=== PATIENT | female | born 1930 | race Caucasian/White ===

== ENCOUNTER 2016-06-13 07:18 | Observation (INO) | payer OTHER ==
[~2016-06-13] VITALS: Ht 152.4 cm; Wt 62.0 kg
[~2016-06-13 07:18] MED LIST: SYNTHROID PO; [UNRECOGNIZED DRUG - OTHER]
[2016-06-13 07:22] VITALS: Ht 152.4 cm; Wt 62.0 kg
[2016-06-13 07:54] LABS: ADD SCAN DIFF NO
[2016-06-13 08:05] LABS: BASOPHILS % 0.6 % (0.0-2.0); EOSINOPHILS # 0.1 10^3/ul (0.0-0.5); EOSINOPHILS % 2.2 % (0.0-7.0); HEMATOCRIT 38.3 % (37.0-47.0); HEMOGLOBIN 12.3 g/dl (12.0-16.0); LYMPHOCYTES # 1.2 10^3/ul (0.8-2.9); LYMPHOCYTES % 23.8 % (15.0-51.0); MEAN CORPUSCULAR HEMOGLOBIN 31.9 pg (29.0-33.0); MEAN CORPUSCULAR HGB CONC 32.1 g/dl (32.0-37.0); MEAN CORPUSCULAR VOLUME 99.2 fl (82.0-101.0); MEAN PLATELET VOLUME 10.6 fl (7.4-10.4); MONOCYTE # 0.4 10^3/ul (0.3-0.9); MONOCYTES % 7.3 % (0.0-11.0); NEUTROPHIL # 3.2 10^3/ul (1.6-7.5); NEUTROPHILS % 65.7 % (39.0-77.0); PLATELET COUNT 233 10^3/UL (140-415); RED BLOOD COUNT 3.86 10^6/ul (4.20-5.40); RED CELL DISTRIBUTION WIDTH 14.1 % (11.5-14.5); WHITE BLOOD COUNT 4.9 10^3/ul (4.8-10.8)
[2016-06-13 08:19] LABS: ALBUMIN 4.4 g/dl (3.3-4.9); CHLORIDE 105 mmol/L (97-110); POTASSIUM 3.9 mmol/L (3.5-5.1); SODIUM 139 mmol/L (135-144)
[2016-06-13 08:21] LABS: CREATININE 0.78 mg/dl (0.44-1.00)
[2016-06-13 08:22] LABS: ALANINE AMINOTRANSFERASE 22 IU/L (13-69); ALBUMIN/GLOBULIN RATIO 1.41; ALKALINE PHOSPHATASE 86 IU/L (42-121); ANION GAP 11 (8-16); ASPARTATE AMINO TRANSFERASE 23 IU/L (15-46); BILIRUBIN,INDIRECT 0.9 mg/dl (0-1.1); BILIRUBIN,TOTAL 0.9 mg/dl (0.2-1.3); BLOOD UREA NITROGEN 20 mg/dl (7-20); CALCIUM 9.1 mg/dl (8.4-10.2); CARBON DIOXIDE 27 mmol/L (21-31); GLUCOSE 102 mg/dl (70-220); TOTAL PROTEIN 7.5 g/dl (6.1-8.1)
[2016-06-13 08:26] LABS: ADD UMIC YES; URINE BILIRUBIN (Dip) NEGATIVE (NEGATIVE); URINE BLOOD (Dip) NEGATIVE (NEGATIVE); URINE COLOR YELLOW (YELLOW); URINE GLUCOSE (Dip) NEGATIVE (NEGATIVE); URINE KETONES (Dip) NEGATIVE (NEGATIVE); URINE LEUKOCYTE ESTERASE (Dip) NEGATIVE (NEGATIVE); URINE NITRITE (Dip) NEGATIVE (NEGATIVE); URINE TOTAL PROTEIN (Dip) TRACE (NEGATIVE); URINE UROBILINOGEN (Dip) 0.2 E.U./dL (0.1-1.0)
[2016-06-13 08:36] LABS: TROPONIN-I < 0.012 ng/ml (0.00-0.12)
[2016-06-13 08:49] LABS: URINE RBCS NONE SEEN /HPF (0)
[2016-06-13 08:50] LABS: BACTERIA,URINE FEW; SQUAMOUS EPITHELIAL CELL,UR FEW
--- NOTE | 2016-06-13 08:50 | RADRPT ---
AMENDMENT: 06/13/2016 2:49:24 PM Mic Mejía MD On further review, the pancreatic duct in the head of the pancreas is dilated to approximately 2.8 m m. The duct does not appear dilated in the tail of the pancreas. PROCEDURE: CT Abdomen and Pelvis without contrast CLINICAL INDICATION: Abdominal pain and complain of pain in the bladder TECHNIQUE: Transaxial images were obtained through the abdomen and pelvis on a multi-slice scanner without the intravenous contrast administration. No oral contrast had previously been given. Sagit arabella and coronal re-formations were subsequently reconstructed. One or more of the following dose reduction techniques were used: - Automated exposure control. - Adjustment of the mA and/or kV according to patient size. - Use of iterative reconstruction technique. Radiation dose: CTDIvol = 14.97 mGy; DLP = 769.17 mGy-cm. COMPARISON: No prior studies are available for comparison. FINDINGS: Lung bases: There is mild cylindrical bronchiectasis seen in the lower lobes with slight interstitia l prominence. Liver: The liver is normal in size. A 1 cm cyst is seen at the dome of the right lobe of the liver. Gallbladder: Surgical ksenia are seen in the gallbladder fossa. Bile ducts: The intra and extrahepatic bile ducts are normal in caliber. Pancreas: Appears normal with no mass or inflammation evident. Spleen: Normal in size with no focal lesion. Calcifications are seen at the arm spleen. Adrenals: Normal with no mass identified. Kidneys, ureters and bladder: The kidneys are normal in size and there is no mass, pathological calc ification, or hydronephrosis evident. There is no perinephric stranding. The ureters are normal in c aliber and no ureteroliths are identified. The bladder is poorly distended. Reproductive organs: The uterus is absent and no adnexal mass is identified. Stomach and bowel: The stomach appears unremarkable. Abundant stool is seen within the somewhat red undant colon. There is no evidence of bowel obstruction or inflammation. Appendix: The vermiform appendix is not distinctly identified. Peritoneum: No free intraperitoneal fluid or air is identified. There is a small fat containing umbi lical hernia. Aorta: There is atherosclerotic vascular calcification but no abdominal aortic aneurysm is evident. IVC: Unremarkable. Lymph nodes: No pathologically enlarged nodes are identified. Osseous structures: There is a moderate dextroscoliotic curve to the lumbar spine and straightening of the normal lordotic curve with grade 1 anterolisthesis of L4 on L5 and with diffuse degenerative endplate and facet changes. IMPRESSION: 1. There is no evidence of urinary outflow obstruction or ureterolithiasis. The bladder is poorly distended. 2. No evidence of bowel obstruction or inflammation. Substantial stool seen within the colon and t he vermiform appendix is not discretely identified. 3. A 1 cm cyst is seen at the dome of the right lobe of the liver. 4. 2 punctate calcifications are seen within the left perineum adjacent to the spleen. 5. Status post cholecystectomy without significant bile duct dilatation evident. 6. Atherosclerotic aorta 7. Dextroscoliotic curve to the thoracic spine with grade 1 anterolisthesis of L4 on L5 with severe diffuse degenerative spine changes. 8. Cylindrical bronchiectasis seen at the lung bases with mild interstitial prominence. Physician Mary Date Time Electronically viewed and signed by Physician Mary on 06/13/2016 14:51 /
[2016-06-13] MEDS ORDERED: HYDR-906 PO (09:30)
[2016-06-13] MEDS ORDERED: DOCU-144 PO (09:30)
--- NOTE | 2016-06-13 09:32 | ERD ---
ER Documentation Chief Complaint Date/Time DATE: 06/13/16 TIME: 09:32 Chief Complaint rt upper abd pain HPI Patient is an 85-year-old female with arthritis who presents with abdominal pain. She has right upper quadrant abdominal pain. She says that she has had a CT scan and an MRI recently which were "all okay" although there was something wrong with her "ampulla". She said this pain started once a months ago. She said that usually the pain is there but it is not constant as it goes away but then comes back quickly. She has had no rashes. She feels it as a "pressure". She has had no fevers, no vomiting, no diarrhea. She says that she has had no treatment as of yet and that she does not like taking medicines. Her primary doctor is Dr. Parry. ROS All systems reviewed and are negative except as per history of present illness. Medications Home Meds Active Scripts Docusate Sodium* (Colace*) 100 Mg Capsule, 100 MG PO TID, #30 CAP Prov:EDEL SEGURA MD 06/13/16 Hydrocodone/Acetaminophen ([place] 5-325 Tablet) 1 Each Tablet, 1 TAB PO Q6H Y for PAIN, #7 TAB Prov:EDEL SEGURA MD 06/13/16 Discontinued Reported Medications [Vitmains] No Conflict Check 07/02/13 [Synthroid] No Conflict Check, PO 07/02/13 Allergies Allergies: Coded Allergies: No Known Allergy (Unverified , 06/13/16) PMhx/Soc History of Surgery: Yes (HYSTERECTOMY, CHOLECYSTECTOMY, TONSILLECTOMY) Anesthesia Reaction: No Hx Neurological Disorder: No Hx Respiratory Disorders: Yes (BRONCHIECTASIS) Hx Cardiac Disorders: No Hx Psychiatric Problems: No Hx Miscellaneous Medical Probl: No Hx Alcohol Use: No Hx Substance Use: No Hx Tobacco Use: No FmHx Family History: diabetes Physical Exam Vitals Vital Signs Date Time Temp Pulse Resp B/P Pulse Ox O2 Delivery O2 Flow Rate FiO2 06/13/16 10:00 98.3 68 20 110/70 98 Room Air 06/13/16 07:22 97.8 87 18 126/60 98 Physical Exam Const: Mild distress secondary to pain Head: Atraumatic Eyes: Normal Conjunctiva ENT: Normal External Ears, Nose and Mouth. Neck: Full range of motion..~ No meningismus. Resp: Clear to auscultation bilaterally Cardio: Regular rate and rhythm, no murmurs Abd: Soft, right upper quadrant pain without rebound or guarding Skin: No petechiae or rashes Back: No midline or flank tenderness Ext: No cyanosis, or edema Neur: Awake and alert Psych: Normal Mood and Affect Result Diagram: 06/13/16 0745 06/13/16 0745 Results 24 hrs Laboratory Tests Test 06/13/16 07:45 06/13/16 08:13 White Blood Count 4.910^3/ul Red Blood Count 3.8610^6/ul Hemoglobin 12.3g/dl Hematocrit 38.3% Mean Corpuscular Volume 99.2fl Mean Corpuscular Hemoglobin 31.9pg Mean Corpuscular Hemoglobin Concent 32.1g/dl Red Cell Distribution Width 14.1% Platelet Count 55616^3/UL Mean Platelet Volume 10.6fl Neutrophils % 65.7% Lymphocytes % 23.8% Monocytes % 7.3% Eosinophils % 2.2% Basophils % 0.6% Nucleated Red Blood Cells % 0.0/100WBC Neutrophils # 3.210^3/ul Lymphocytes # 1.210^3/ul Monocytes # 0.410^3/ul Eosinophils # 0.110^3/ul Basophils # 0.010^3/ul Nucleated Red Blood Cells # 0.010^3/ul Sodium Level 139mmol/L Potassium Level 3.9mmol/L Chloride Level 105mmol/L Carbon Dioxide Level 27mmol/L Anion Gap 11 Blood Urea Nitrogen 20mg/dl Creatinine 0.78mg/dl Glucose Level 102mg/dl Calcium Level 9.1mg/dl Total Bilirubin 0.9mg/dl Direct Bilirubin 0.00mg/dl Indirect Bilirubin 0.9mg/dl Aspartate Amino Transf (AST/SGOT) 23IU/L Alanine Aminotransferase (ALT/SGPT) 22IU/L Alkaline Phosphatase 86IU/L Troponin I < 0.012ng/ml Total Protein 7.5g/dl Albumin 4.4g/dl Globulin 3.10g/dl Albumin/Globulin Ratio 1.41 Lipase 98U/L CA 19-9 Antigen 52.2U/ml Urine Color YELLOW Urine Clarity CLEAR Urine pH 5.5 Urine Specific Meally >=1.030 Urine Ketones NEGATIVE Urine Nitrite NEGATIVE Urine Bilirubin NEGATIVE Urine Urobilinogen 0.2 E.U./dL Urine Leukocyte Esterase NEGATIVE Urine Microscopic RBC NONE SEEN/HPF Urine Microscopic WBC 2-5/HPF Urine Squamous Epithelial Cells FEW Urine Bacteria FEW Urine Hemoglobin NEGATIVE Urine Glucose NEGATIVE% Urine Total Protein TRACE Current Medications Medications (Trade) Dose Ordered Sig/Clarence Route PRN Reason Start Time Stop Time Status Last Admin Dose Admin Ondansetron HCl (Zofran Inj) 4 mg BRIDGE ORDER PRN IV NAUSEA AND/OR VOMITING 06/13/16 10:00 06/14/16 09:59 Acetaminophen (Tylenol Tab) 650 mg ER BRIDGE PRN PO MILD PAIN/FEVER 06/13/16 10:00 06/14/16 09:59 Procedures/MDM EKG read by me: Rate/Rhythm: Right bundle branch block a rate of 75 Intervals: Normal Impression: Right bundle branch block without evidence of ischemia PROCEDURE: CT Abdomen and Pelvis without contrast CLINICAL INDICATION: Abdominal pain and complain of pain in the bladder TECHNIQUE: Transaxial images were obtained through the abdomen and pelvis on a multi-slice scanner without the intravenous contrast administration. No oral contrast had previously been given. Sagittal and coronal re-formations were subsequently reconstructed. One or more of the following dose reduction techniques were used: - Automated exposure control. - Adjustment of the mA and/or kV according to patient size. - Use of iterative reconstruction technique. Radiation dose: CTDIvol = 14.97 mGy; DLP = 769.17 mGy-cm. COMPARISON: No prior studies are available for comparison. FINDINGS: Lung bases: There is mild cylindrical bronchiectasis seen in the lower lobes with slight interstitial prominence. Liver: The liver is normal in size. A 1 cm cyst is seen at the dome of the right lobe of the liver. Gallbladder: Surgical ksenia are seen in the gallbladder fossa. Bile ducts: The intra and extrahepatic bile ducts are normal in caliber. Pancreas: Appears normal with no mass or inflammation evident. Spleen: Normal in size with no focal lesion. Calcifications are seen at the arm spleen. Adrenals: Normal with no mass identified. Kidneys, ureters and bladder: The kidneys are normal in size and there is no mass, pathological calcification, or hydronephrosis evident. There is no perinephric stranding. The ureters are normal in caliber and no ureteroliths are identified. The bladder is poorly distended. Reproductive organs: The uterus is absent and no adnexal mass is identified. Stomach and bowel: The stomach appears unremarkable. Abundant stool is seen within the somewhat redundant colon. There is no evidence of bowel obstruction or inflammation. Appendix: The vermiform appendix is not distinctly identified. Peritoneum: No free intraperitoneal fluid or air is identified. There is a small fat containing umbilical hernia. Aorta: There is atherosclerotic vascular calcification but no abdominal aortic aneurysm is evident. IVC: Unremarkable. Lymph nodes: No pathologically enlarged nodes are identified. Osseous structures: There is a moderate dextroscoliotic curve to the lumbar spine and straightening of the normal lordotic curve with grade 1 anterolisthesis of L4 on L5 and with diffuse degenerative endplate and facet changes. IMPRESSION: 1. There is no evidence of urinary outflow obstruction or ureterolithiasis. The bladder is poorly distended. 2. No evidence of bowel obstruction or inflammation. Substantial stool seen within the colon and the vermiform appendix is not discretely identified. 3. A 1 cm cyst is seen at the dome of the right lobe of the liver. 4. 2 punctate calcifications are seen within the left perineum adjacent to the spleen. 5. Status post cholecystectomy without significant bile duct dilatation evident. 6. Atherosclerotic aorta 7. Dextroscoliotic curve to the thoracic spine with grade 1 anterolisthesis of L4 on L5 with severe diffuse degenerative spine changes. 8. Cylindrical bronchiectasis seen at the lung bases with mild interstitial prominence. Physician Mary Date Time Electronically viewed and signed by Physician Mary on 06/13/2016 08:49 Patient is a 85-year-old female presents with abdominal pain. She has had abdominal pain for months but the family is concerned about possible cancer as she has had elevated CA 19-9 levels in the past. She had a full workup here including laboratory studies and CT scan of the abdomen and pelvis. The patient had normal laboratory studies other than an elevated CA-19-9 which is elevated at 52. I was considering discharge for the patient but Dr. Parry came to the bedside and saw the patient herself. She is the patient's primary doctor and said that the patient cannot be discharged and needs to be admitted to the hospital. She said that she is unstable for transfer as well given the intractable pain. The patient will therefore be admitted Dr. Parry asked for admission to the care of Dr. Masters and she will see the patient in consultation. I spoke with Dr. Masters for admission to a medical surgical bed. At this point I doubt appendicitis, cholecystitis, pancreatitis, or bowel obstruction. She has had hysterectomy, cholecystectomy, and appendectomy. There is a concern for possible pancreatic cancer given previous imaging studies per Dr. Parry. The patient is currently refusing pain medicines. The patient will be admitted to a medical surgical observation bed. Departure Diagnosis: Primary Impression: Abdominal pain Abdominal location: right upper quadrant Qualified Code: R10.11 - Right upper quadrant abdominal pain Condition: Fair Patient Instructions: Abdominal Pain Referrals: ELLA PARRY MD Additional Instructions: FOLLOW UP WITH YOUR PRIMARY CARE PHYSICIAN TOMORROW.Return to this facility if you are not improving as expected. EDEL SEGURA MD Jun 13, 2016 09:32
[2016-06-13] MEDS ORDERED: ONDANSETRON 4 MG INJ IV PRN (10:00)
[2016-06-13] MEDS ORDERED: ACETAMINOPHEN 325 MG TAB PO PRN (10:00)
[2016-06-13 10:32] VITALS: TEMP 98.3
[2016-06-13 12:08] VITALS: BP 110/61; PULSE 79; RESP 18
[2016-06-13 12:53] LABS: PROTIME 13.2 Sec (12.2-14.2)
[2016-06-13 12:54] LABS: PARTIAL THROMBOPLASTIN TIME 28.6 Sec (25.0-35.0); PROTIME 13.2 Sec (12.2-14.2); THROMBIN TIME 15.9 SEC (13.8-19.1)
[2016-06-13] MEDS: D5W-0.45 NACL + KCL 20 MEQ 1,000 ML IV SCH (12:59)
[2016-06-13] MEDS ORDERED: INDOMETHACIN 50 MG SUPP PR ONE (14:00)
--- NOTE | 2016-06-13 15:36 | HP ---
DATE OF ADMISSION: 06/13/2016 CHIEF COMPLAINT: Right upper abdominal pain. HISTORY OF PRESENT ILLNESS: The patient is an 85-year-old very female. The patient stated that she developed a right upper quadrant abdominal pain about a month ago. The patient is followed with Dr Steven Parry in hematology/oncology consultation and had some outpatient studies, which revealed some ampulla mass. The patient stated that her right upper quadrant pain gets significantly worse and sh e presented to the emergency room. The patient denies any fever or chills. Denies any nausea, vomi ting. Patient also stated that she has pain when her bladder gets full. She actually was evaluated by , urologist and had cystoscopy with biopsy which according to the patient, was negativ e. The patient denies any nausea, vomiting. Patient stated her abdominal pain is not related to th e food ingestion. The patient denies any chest pain, denies any shortness of breath, denies any miguel ateral extremity swelling. The patient also underwent a CT of the abdomen and pelvis which revealed 1 cm cyst in the dome of the right lobe of the liver, no evidence of obstruction or inflammation, s ustained substantial stool seen within the colon. There is no evidence of urinary outflow obstructi on or ureterolithiasis. The bladder is fully distended. Two punctate calcifications are seen within the left perineum adjacent to the spleen, status post ch olecystectomy without significant bile duct dilatation evident. Atherosclerotic aortic, cylindrical bronchiectasis seen at the lung bases with mild interstitial prominence and a dextroscoliotic cure t o the thoracic spine with grade I anterolisthesis of L4 on L5 with severe diffuse degenerative spine changes. The patient was evaluated by Dr. Parry and will be admitted for further GI workup. T he patient also CA99 was elevated to 52. PAST MEDICAL HISTORY: Positive for bronchiectasis. PAST SURGICAL HISTORY: Status post hysterectomy, status post cholecystectomy, status post tonsillec alanis, status post appendectomy. FAMILY HISTORY: Positive for diabetes. SOCIAL HISTORY: Patient lives alone. IDENTIFICATION: The patient is a . The patient denies any tobacco use, denies any alcohol use , denies any illicit drug use. ALLERGIES: NO KNOWN ALLERGIES. HOME MEDICATIONS: Includes: 1. Colace. 2. [place]. REVIEW OF SYSTEMS: A 12-point review of systems is negative unless what mentioned in the HPI. PHYSICAL ASSESSMENT GENERAL: Well-developed, well-nourished female, currently is awake, alert. VITAL SIGNS: Temperature is 98.3, pulse is 71, blood pressure is 110/63, respiratory rate 20, oxyge n saturation 98% on room air. HEENT: Head is atraumatic, normocephalic. Pupils equal, round, reactive to light and accommodation . Oral mucosa is pink and moist. NECK: Supple, no cervical lymphadenopathy, no thyromegaly. CHEST: Lungs clear bilaterally. There is no rhonchi, wheezes, rales noted. CARDIOVASCULAR: Normal S1, S2. No murmurs, gallops, clicks, rubs noted. ABDOMEN: Round, soft, nondistended. Patient has a right upper quadrant tenderness. Bowel sounds p resent. There is no guarding, no rebound tenderness. EXTREMITIES: No edema, clubbing, cyanosis. Pulses equal bilaterally 2+. SKIN: There is no rash, petechiae noted. NEUROLOGIC: Patient is awake, alert and oriented x4. No focal deficits noted. Motor strength 5/5 in all extremities. LABORATORY DATA: On admission, CBC: White blood cells 4.9, hemoglobin 12.3, hematocrit 38.3, plate lets 233. Chemistry: Sodium is 139, potassium 3.9, chloride 105, carbon dioxide 27, anion gap 11, BUN 20, creatinine 0.78, glucose 102, calcium 9.1, AST 23, ALT 22, alkaline phosphatase is 86. Trop onin less than 0.012. Urinalysis is negative for nitrite and negative for leukocyte esterase. ASSESSMENT AND PLAN: Intractable abdominal pain. We will continue Zofran p.r.n. for nausea and mor phine p.r.n. for pain. Possible pancreatic cancer. Dr. Bermudez is following the patient in gastroente rology consultation and plan for ERCP today. Continue patient n.p.o. We will administer IV fluids a nd monitor electrolytes. We will continue sequential compression device for deep venous thrombosis prophylaxis and Protonix for peptic ulcer disease prophylaxis. Further recommendations based on cli nical course. Plan of care discussed with Dr. Johnson. Dictated By: JENNIFER ARREDONDO SERVICE AND REPAIR SUPERVISOR for MARRY JOHNSON MD SR/NTS Conf#: [id number] [facility]#: [id number]
--- NOTE | 2016-06-13 16:23 | CONS ---
DATE OF ADMISSION: 06/13/2016 DATE OF CONSULTATION: TYPE OF CONSULTATION: Gastroenterology. Dear Dr. Johnson and Dr. Parry: Thank you for asking me to see Mrs. Monroe in GI consultation. HISTORY OF PRESENT ILLNESS: As you know, the patient is an 85-year-old white female, is admitted to the hospital because of abdominal pain which she has been experiencing for the past 2 months. Pain is mostly upper abdomen whenever there is pressure on it by the bra or a dress of some kind it woul d hurt. She would feel better when there is no pressure on the abdomen. No nausea, no vomiting, no GI bleeding, no fever. No significant weight loss. 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 Twent y years ago she underwent a cholecystectomy. Now, she thinks that the pain is similar to the pain t hat she had at the time of the gallbladder surgery. She has no history of diarrhea. She had an episode of pancreatitis 20 years ago. PAST SURGICAL HISTORY: Includes cholecystectomy, hysterectomy, tubal ligation. MEDICATIONS: Prior to the admission includes: 1. Colace. 2. [place]. 3. Vitamin. 4. Synthroid. REVIEW OF SYSTEM: Indicates bronchiectasis. PHYSICAL EXAMINATION: GENERAL: The patient is an 85-year-old white female who is alert. She is well built. VITAL SIGNS: Afebrile. CARDIOVASCULAR: Normal heart sounds. RESPIRATORY: Normal breath sounds. ABDOMEN: Shows soft abdomen with no palpable masses. No distention. LABORATORY WORKUP: WBC count 4900, hemoglobin 12.3, potassium 3.9, hemoglobin is 12.3. The lipase is 98%. CA 19-9 is 52.2, total bilirubin 0.9. The AST is 23, ALT is 22. The CAT scan of the abdomen done in this hospital shows no gross abnormality, but there was some cor rections need to be made, which I discussed with the radiologist. There seems to be significant robbins creatic ductal dilatation. 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 History of bronchiectasis. PLAN: At this time, recommend ERCP as requested, and probably she might need stenting. Once again, doctor, thank you for this consultation. Dictated By: ANGY DUBON/RADHA Conf#: [id number] DID#: [id number] CC: ELLA PARRY MD; MARRY JOHNSON MD;*EndCC*
[2016-06-13] MEDS ORDERED: IOHEXOL 300MG/ML 30 ML BTL ONE (17:53)
[2016-06-13] MEDS ORDERED: MIDAZOLAM 1 MG/ML 2 ML INJ ONE (19:10)
[2016-06-13] MEDS ORDERED: ROCURONIUM 50 MG INJ ONE (19:10)
[2016-06-13] MEDS ORDERED: PROPOFOL 20 ML ONE (19:10)
--- NOTE | 2016-06-13 22:26 | CONS ---
Date/Time of Note Date/Time of Note DATE: 06/13/16 TIME: 22:26 Assessment/Plan Assessment/Plan Chief Complaint/Hosp Course ASSESSMENT AND PLAN: AMPULLARY MASS Intractable abdominal pain. We will continue Zofran p.r.n. for nausea and morphine p.r.n. for pain. GI EVAL - FOR ERCP HX pancreatitis 20 years ago. HX cholecystectomy, HX hysterectomy, tubal ligation. 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 SHE ALSO HAS ELEVATED CA 19-9-at 51. The patient stated that her right upper quadrant pain gets significantly worse and she presented to the emergency room. The patient denies any fever or chills. Denies any nausea, vomiting. Patient also stated that she has pain when her bladder gets full. She actually was evaluated by urologist and had cystoscopy with biopsy which according to the patient, was negative. The patient denies any nausea, vomiting. Patient stated her abdominal pain is not related to the food ingestion. The patient denies any chest pain, denies any shortness of breath, denies any bilateral extremity swelling. The patient also underwent a CT of the abdomen and pelvis in ER without contrast which revealed 1 cm cyst in the dome of the right lobe of the liver, no evidence of obstruction or inflammation, sustained substantial stool seen within the colon. There is no evidence of urinary outflow obstruction or ureterolithiasis. The bladder is fully distended. Two punctate calcifications are seen within the left perineum adjacent to the spleen, status post cholecystectomy without significant bile duct dilatation evident. Atherosclerotic aortic, cylindrical bronchiectasis seen at the lung bases with mild interstitial prominence and a dextroscoliotic cure to the thoracic spine with grade I anterolisthesis of L4 on L5 with severe diffuse degenerative spine changes. PAST MEDICAL HISTORY: Positive for bronchiectasis. PAST SURGICAL HISTORY: Status post hysterectomy, status post cholecystectomy, status post tonsillectomy, status post appendectomy. FAMILY HISTORY: Positive for diabetes. SOCIAL HISTORY: Patient lives alone. IDENTIFICATION: The patient is a . The patient denies any tobacco use, denies any alcohol use, denies any illicit drug use. ALLERGIES: NO KNOWN ALLERGIES. HOME MEDICATIONS: Includes: 1. Colace. 2. Stamps. REVIEW OF SYSTEMS: A 12-point review of systems is negative unless what mentioned in the HPI. Social History Smoking Status: Never smoker Exam/Review of Systems Vital Signs Vitals Vital Signs Date Time Temp Pulse Resp B/P Pulse Ox O2 Delivery O2 Flow Rate FiO2 06/13/16 12:08 97.6 79 18 110/61 96 Room Air Exam PHYSICAL ASSESSMENT GENERAL: Well-developed, well-nourished female, currently is awake, alert, in severe pain HEENT: Head is atraumatic, normocephalic. Pupils equal, round, reactive to light and accommodation. Oral mucosa is pink and moist. NECK: Supple, no cervical lymphadenopathy, no thyromegaly. CHEST: Lungs clear bilaterally. There is no rhonchi, wheezes, rales noted. CARDIOVASCULAR: Normal S1, S2. No murmurs, gallops, clicks, rubs noted. ABDOMEN: Round, soft, nondistended. Patient has a right upper quadrant tenderness. Bowel sounds present. There is no guarding, no rebound tenderness. EXTREMITIES: No edema, clubbing, cyanosis. Pulses equal bilaterally 2+. SKIN: There is no rash, petechiae noted. NEUROLOGIC: Patient is awake, alert and oriented x4. No focal deficits noted. Motor strength 5/5 in all extremities. Results Result Diagram: 06/13/16 1215 06/13/16 0745 Results 24 hrs Laboratory Tests Test 06/13/16 07:45 06/13/16 08:13 06/13/16 12:15 White Blood Count 4.9 Red Blood Count 3.86 L Hemoglobin 12.3 Hematocrit 38.3 Mean Corpuscular Volume 99.2 Mean Corpuscular Hemoglobin 31.9 Mean Corpuscular Hemoglobin Concent 32.1 Red Cell Distribution Width 14.1 Platelet Count 233 244 Mean Platelet Volume 10.6 H Neutrophils % 65.7 Lymphocytes % 23.8 Monocytes % 7.3 Eosinophils % 2.2 Basophils % 0.6 Nucleated Red Blood Cells % 0.0 Neutrophils # 3.2 Lymphocytes # 1.2 Monocytes # 0.4 Eosinophils # 0.1 Basophils # 0.0 Nucleated Red Blood Cells # 0.0 Sodium Level 139 Potassium Level 3.9 Chloride Level 105 Carbon Dioxide Level 27 Anion Gap 11 Blood Urea Nitrogen 20 Creatinine 0.78 Glucose Level 102 Calcium Level 9.1 Total Bilirubin 0.9 Direct Bilirubin 0.00 Indirect Bilirubin 0.9 Aspartate Amino Transf (AST/SGOT) 23 Alanine Aminotransferase (ALT/SGPT) 22 Alkaline Phosphatase 86 Troponin I < 0.012 Total Protein 7.5 Albumin 4.4 Globulin 3.10 Albumin/Globulin Ratio 1.41 Lipase 98 CA 19-9 Antigen 52.2 H Urine Color YELLOW Urine Clarity CLEAR Urine pH 5.5 Urine Specific [place] >=1.030 H Urine Ketones NEGATIVE Urine Nitrite NEGATIVE Urine Bilirubin NEGATIVE Urine Urobilinogen 0.2 E.U./dL Urine Leukocyte Esterase NEGATIVE Urine Microscopic RBC NONE SEEN Urine Microscopic WBC 2-5 Urine Squamous Epithelial Cells FEW Urine Bacteria FEW Urine Hemoglobin NEGATIVE Urine Glucose NEGATIVE Urine Total Protein TRACE Prothrombin Time 13.2 Prothrombin Time Ratio 1.0 INR International Normalized Ratio 1.00 Activated Partial Thromboplast Time 28.6 Thrombin Time 15.9 Medications Medications Current Medications Potassium Chloride/Dextrose/ Sod Cl (D5-1/2ns + KCl 20 Meq) 1,000 ml @ 70 mls/ hr [id number] IV Last administered on 06/13/16t 12:59; Admin Dose 70 MLS/HR; Start 06/13/16 at 12:00 Pantoprazole (Protonix Iv) 40 mg DAILY@06 IV ; Start 06/14/16 at 06:00 ELLA DARLING MD Jun 13, 2016 22:26
[2016-06-14] VITALS (16 sets, daily range): BP systolic 100–120; BP diastolic 42–64; PULSE 80–86; RESP 14–32
[2016-06-14] MEDS: PANTOPRAZOLE 40 MG INJ IV SCH (05:45)
[2016-06-14] MEDS: D5W-0.45 NACL + KCL 20 MEQ 1,000 ML IV SCH ×2 (05:52→16:16)
[2016-06-14 07:20] LABS: ADD SCAN DIFF NO
[2016-06-14 07:24] LABS: BASOPHILS % 0.5 % (0.0-2.0); EOSINOPHILS # 0.1 10^3/ul (0.0-0.5); EOSINOPHILS % 3.2 % (0.0-7.0); HEMATOCRIT 38.2 % (37.0-47.0); HEMOGLOBIN 12.1 g/dl (12.0-16.0); LYMPHOCYTES # 1.3 10^3/ul (0.8-2.9); LYMPHOCYTES % 30.3 % (15.0-51.0); MEAN CORPUSCULAR HEMOGLOBIN 31.7 pg (29.0-33.0); MEAN CORPUSCULAR HGB CONC 31.7 g/dl (32.0-37.0); MEAN PLATELET VOLUME 10.9 fl (7.4-10.4); MONOCYTE # 0.3 10^3/ul (0.3-0.9); MONOCYTES % 7.3 % (0.0-11.0); NEUTROPHIL # 2.6 10^3/ul (1.6-7.5); NEUTROPHILS % 58.2 % (39.0-77.0); PLATELET COUNT 239 10^3/UL (140-415); RED BLOOD COUNT 3.82 10^6/ul (4.20-5.40); RED CELL DISTRIBUTION WIDTH 14.3 % (11.5-14.5); WHITE BLOOD COUNT 4.4 10^3/ul (4.8-10.8)
[2016-06-14 07:40] LABS: POTASSIUM 4.1 mmol/L (3.5-5.1)
[2016-06-14 07:42] LABS: CREATININE 0.74 mg/dl (0.44-1.00)
--- NOTE | 2016-06-14 10:32 | CONS ---
Date/Time of Note Date/Time of Note DATE: 06/14/16 TIME: 10:31 Assessment/Plan Assessment/Plan Chief Complaint/Hosp Course ASSESSMENT AND PLAN: AMPULLARY MASS Intractable abdominal pain. We will continue Zofran p.r.n. for nausea and morphine p.r.n. for pain. GI - ERCP HX pancreatitis 20 years ago. HX cholecystectomy, HX hysterectomy, tubal ligation. Problems: Consultation Date/Type/Reason Admit Date/Time Jun 13, 2016 at 10:17 Initial Consult Date 06/13/16 Type of Consultation: [facility] Referring Provider: MARRY JOHNSON MD 24 HR Interval Summary Free Text/Dictation all noted d/w dr bautista Exam/Review of Systems Vital Signs Vitals Vital Signs Date Time Temp Pulse Resp B/P Pulse Ox O2 Delivery O2 Flow Rate FiO2 06/14/16 08:00 98.4 57 16 102/49 94 06/13/16 12:08 Room Air Intake and Output 06/13/16 06/13/16 06/14/16 15:00 23:00 07:00 Intake Total 420 ml 600 ml Balance 420 ml 600 ml Exam GENERAL: Well-developed, well-nourished female, currently is awake, alert. HEENT: Head is atraumatic, normocephalic. Pupils equal, round, reactive to light and accommodation. Oral mucosa is pink and moist. NECK: Supple, no cervical lymphadenopathy, no thyromegaly. CHEST: Lungs clear bilaterally. There is no rhonchi, wheezes, rales noted. CARDIOVASCULAR: Normal S1, S2. No murmurs, gallops, clicks, rubs noted. ABDOMEN: Round, soft, nondistended. Patient has a right upper quadrant tenderness. Bowel sounds present. There is no guarding, no rebound tenderness. EXTREMITIES: No edema, clubbing, cyanosis. Pulses equal bilaterally 2+. SKIN: There is no rash, petechiae noted. NEUROLOGIC: Patient is awake, alert and oriented x4. No focal deficits noted. Motor strength 5/5 in all extremities. Results Result Diagram: 06/14/16 0552 06/14/16 0552 Results 24 hrs Laboratory Tests Test 06/13/16 12:15 06/14/16 05:52 Platelet Count 244 239 Prothrombin Time 13.2 Prothrombin Time Ratio 1.0 INR International Normalized Ratio 1.00 Activated Partial Thromboplast Time 28.6 Thrombin Time 15.9 White Blood Count 4.4 L Red Blood Count 3.82 L Hemoglobin 12.1 Hematocrit 38.2 Mean Corpuscular Volume 100.0 Mean Corpuscular Hemoglobin 31.7 Mean Corpuscular Hemoglobin Concent 31.7 L Red Cell Distribution Width 14.3 Mean Platelet Volume 10.9 H Neutrophils % 58.2 Lymphocytes % 30.3 Monocytes % 7.3 Eosinophils % 3.2 Basophils % 0.5 Nucleated Red Blood Cells % 0.0 Neutrophils # 2.6 Lymphocytes # 1.3 Monocytes # 0.3 Eosinophils # 0.1 Basophils # 0.0 Nucleated Red Blood Cells # 0.0 Sodium Level 142 Potassium Level 4.1 Chloride Level 105 Carbon Dioxide Level 26 Anion Gap 15 Blood Urea Nitrogen 17 Creatinine 0.74 Glucose Level 99 Calcium Level 9.0 Medications Medications Current Medications Potassium Chloride/Dextrose/ Sod Cl (D5-1/2ns + KCl 20 Meq) 1,000 ml @ 70 mls/ hr [id number] IV Last administered on 06/14/16 05:52; Admin Dose 70 MLS/HR; Start 06/13/16 at 12:00 Pantoprazole (Protonix Iv) 40 mg DAILY@06 IV Last administered on 06/14/16 05: 45; Admin Dose 40 MG; Start 06/14/16 at 06:00 ELLA DARLING MD Jun 14, 2016 10:32
[2016-06-14] MEDS ORDERED: IOHEXOL 300MG/ML 30 ML BTL ONE (11:31)
[2016-06-14] MEDS ORDERED: FENTAnyl 50 MCG/ML VIAL ONE (11:45)
[2016-06-14] MEDS ORDERED: NEOSTIGMINE 3 MG/3 ML SYRINGE ONE (11:45)
[2016-06-14] MEDS ORDERED: GLYCOPYRROLATE 0.4 MG INJ ONE (11:45)
[2016-06-14] MEDS ORDERED: MIDAZOLAM 1 MG/ML 2 ML INJ ONE (11:45)
[2016-06-14] MEDS ORDERED: LIDOCAINE 2% (SDV) 5 ML INJ ONE (11:45)
[2016-06-14] MEDS ORDERED: ROCURONIUM 50 MG INJ ONE (11:45)
[2016-06-14] MEDS ORDERED: PROPOFOL 20 ML ONE (11:45)
[2016-06-14] MEDS ORDERED: ONDANSETRON 4 MG INJ ONE (11:47)
[2016-06-14] MEDS ORDERED: PHENYLephrine (100 MCG/ML) 5ML SYG ONE (12:24)
[2016-06-14] MEDS ORDERED: hydrALAzine 20 MG INJ ONE (12:34)
[2016-06-14] MEDS ORDERED: HYDROmorphONE (0.2 MG/ML) 10ML SYG IV PRN (13:00)
[2016-06-14] MEDS ORDERED: LABETALOL HCL 20MG INJ IV PRN (13:00)
[2016-06-14] MEDS ORDERED: MEPERIDINE 25 MG INJ IV PRN (13:00)
--- NOTE | 2016-06-14 14:17 | GILP ---
DATE OF PROCEDURE: NAME OF PROCEDURE: Endoscopic retrograde cholangiopancreatography, sphincterotomy, stent placement into the pancreatic duct, and stent placement into the bile duct. PREOPERATIVE DIAGNOSIS: Patient presenting with history of abdominal pain. CAT scan of the abdomen showed evidence of a possible mass in the ampulla, possible mass adjacent to the ampulla, a dilated pancreatic duct, rule out pancreatic cancer. POSTOPERATIVE DIAGNOSES: Stricture noted about 1 cm above the ampulla, in the pancreatic duct there is a high grade stricture. After the brushing, a 7 x 7 pancreatic duct stent was placed. The CBD showed dilatation all the way from the ampulla to the hilum of the hepatic duct, and there was a pos sibility of a stricture near the ampulla. Sphincterotomy was performed. CBD stent was placed. Biopsy of the ampulla and adjacent polyp was done. DESCRIPTION OF PROCEDURE: After the informed written consent was obtained, the patient was intubate d by anesthesiologist, Dr. Butler. When the patient became more somnolent, was sleepy in the pron e position, Olympus video side-viewing duodenoscope was inserted into the oropharynx, then into the esophagus, subsequently into the stomach and then into the duodenum. The ampulla appeared to be nor mal in appearance. Carcinoma cannot be excluded. About 2 cm away from the ampulla proximally there is evidence of about a 1 cm sessile polyp was noted with a wide base. Biopsy was done. Through the ampulla, the Dreamtome was inserted and common pancreatic duct was initially cannulated. There is a pancreatic duct from the ampulla for about 1 to 1.5 cm length, appeared to be dilated. Above this area, there is a high grade stricture about 2 cm long was noted and proximal to the stri cture, pancreatic duct also significantly dilated. At this time, through the Dreamtome guidewire wa s inserted through the pancreatic duct stricture into the proximal pancreatic duct and over the guid ewire by using the Dreamtome, sphincterotomy of the pancreatic duct sphincter was performed, and fol lowing the sphincterotomy, a brush was inserted and pancreatic duct stricture was brushed, and the b tejeda was sent for cytology. Subsequently, 7 cm x 7-Georgian long straight pancreatic duct stent was d eployed across the ampulla into the duodenum and into the pancreatic duct. At this time, by using t [email or web address], common bile duct was cannulated. Common bile duct showed significant dilatation at le ast more than 1 cm in diameter. A small sphincterotomy was performed by using the cutting wire of t he PIERIS Proteolabtome. At this time, over the guidewire, a 10 x 7 [place] type of biliary stent was placed into the bile duct across the ampulla into the duodenum. Scope at this time was withdrawn. Photog raphs were obtained. No additional abnormalities detected, and the procedure was terminated. PLAN: Recommend wait for the pathology report. Dictated By: ANGY MENDOZA MD NC/NTS Conf#: [id number] DID#: [id number] CC: MARRY JOHNSON MD; Brinda;*[facility]*
--- NOTE | 2016-06-14 15:14 | RADRPT ---
PROCEDURE: Intraoperative imaging for ERCP with fluoroscopy. CLINICAL INDICATION: Right upper quadrant pain. Intraoperative. TECHNIQUE: 10 images of the right upper quadrant of the abdomen were obtained in the operating mark m with an image intensifier. No radiologist was in attendance. 168.2 seconds of fluoroscopy time w as used. COMPARISON: CT scan of the abdomen and pelvis dated 06/13/2016. FINDINGS: Images demonstrate the endoscope in position. Contrast was injected into the pancreatic duct and th en the common bile duct. Both ducts are dilated. There is a probable filling defect distally in th e common bile duct. Stents were placed in the pancreatic duct and the common bile duct. IMPRESSION: 1. Dilated pancreatic duct and common bile duct with probable large filling defect distally in the c ommon bile duct. RPTAT: QQ .Lucian Powell MD, Date Time Electronically viewed and signed by .Lucian Powell MD, on 06/14/2016 15:13 .R/
--- NOTE | 2016-06-14 17:10 | PN ---
Date/Time of Note Date/Time of Note DATE: 06/14/16 TIME: 17:06 Assessment/Plan VTE Prophylaxis VTE Prophylaxis Intervention: SCD's Lines/Catheters IV Catheter Type (from Nrs): Peripheral IV Assessment/Plan Chief Complaint/Hosp Course - Intractable abdominal pain. - Possible mass in the ampulla -Stricture of the pancreatic ampulla, status post stent placement during ERCP by Dr. Bermudez, follow-up on pathology report. Continue sequential compression device for deep venous thrombosis prophylaxis and Protonix for peptic ulcer disease prophylaxis. Further recommendations based on clinical course. Plan of care discussed with Dr. Masters. Problems: Subjective 24 Hr Interval Summary Free Text/Dictation Patient is status post ERCP, pain is well controlled, started on clear liquid diet. Exam/Review of Systems Vital Signs Vitals Vital Signs Date Time Temp Pulse Resp B/P Pulse Ox O2 Delivery O2 Flow Rate FiO2 06/14/16 14:34 80 18 117/57 93 Room Air 06/14/16 13:44 8.0 06/14/16 13:36 98.0 Intake and Output 06/13/16 06/13/16 06/14/16 15:00 23:00 07:00 Intake Total 420 ml 600 ml Balance 420 ml 600 ml Exam PHYSICAL ASSESSMENT GENERAL: Well-developed, well-nourished female, currently is awake, alert. HEENT: Head is atraumatic, normocephalic. Pupils equal, round, reactive to light and accommodation. Oral mucosa is pink and moist. NECK: Supple, no cervical lymphadenopathy, no thyromegaly. CHEST: Lungs clear bilaterally. There is no rhonchi, wheezes, rales noted. CARDIOVASCULAR: Normal S1, S2. No murmurs, gallops, clicks, rubs noted. ABDOMEN: Round, soft, nondistended. Patient has a right upper quadrant tenderness. Bowel sounds present. There is no guarding, no rebound tenderness. EXTREMITIES: No edema, clubbing, cyanosis. Pulses equal bilaterally 2+. SKIN: There is no rash, petechiae noted. NEUROLOGIC: Patient is awake, alert and oriented x4. No focal deficits noted. Motor strength 5/5 in all extremities. Results Result Diagram: 06/14/16 0552 06/14/16 0552 Results 24 hrs Laboratory Tests Test 06/14/16 05:52 White Blood Count 4.4 L Red Blood Count 3.82 L Hemoglobin 12.1 Hematocrit 38.2 Mean Corpuscular Volume 100.0 Mean Corpuscular Hemoglobin 31.7 Mean Corpuscular Hemoglobin Concent 31.7 L Red Cell Distribution Width 14.3 Platelet Count 239 Mean Platelet Volume 10.9 H Neutrophils % 58.2 Lymphocytes % 30.3 Monocytes % 7.3 Eosinophils % 3.2 Basophils % 0.5 Nucleated Red Blood Cells % 0.0 Neutrophils # 2.6 Lymphocytes # 1.3 Monocytes # 0.3 Eosinophils # 0.1 Basophils # 0.0 Nucleated Red Blood Cells # 0.0 Sodium Level 142 Potassium Level 4.1 Chloride Level 105 Carbon Dioxide Level 26 Anion Gap 15 Blood Urea Nitrogen 17 Creatinine 0.74 Glucose Level 99 Calcium Level 9.0 Medications Medications Current Medications Potassium Chloride/Dextrose/ Sod Cl (D5-1/2ns + KCl 20 Meq) 1,000 ml @ 70 mls/ hr [id number] IV Last administered on 06/14/16 05:52; Admin Dose 70 MLS/HR; Start 06/13/16 at 12:00 Pantoprazole (Protonix Iv) 40 mg DAILY@06 IV Last administered on 06/14/16 05: 45; Admin Dose 40 MG; Start 06/14/16 at 06:00 JENNIFER ARREDONDO Jun 14, 2016 17:10
[2016-06-14] MEDS: KETOROLAC 15 MG INJ IV PRN (20:17)
--- NOTE | 2016-06-15 01:16 | RADRPT ---
PROCEDURE: X-ray abdomen. CLINICAL INDICATION: Abdominal pain. TECHNIQUE: 5 views of the lumbar spine. COMPARISON: None FINDINGS: Demineralization limits evaluation of fine osseous detail. Curvature of the lumbar spine convex to the right is nonspecific. Bilateral marginal osteophytes ar e seen at multiple levels. Mild grade 1 anterolisthesis of L4 on L5. Disk space narrowing at all le vels of the lumbar spine. Posterior facet degenerative changes all levels, greater at the L4-5 and L5-S1 levels. Anterior endplate osteophytes are seen at all levels, greatest at the L5-S1 level. 2 stents over the left mid abdomen. Bowel gas pattern is nonobstructive and nonspecific. Lung base s are clear. IMPRESSION: Demineralization and degenerative changes, without acute fracture. RPTAT: [facility] Physician Nguyễn Date Time Electronically viewed and signed by Physician Nguyễn on 06/15/2016 01:16 RS/
[2016-06-15] MEDS: PANTOPRAZOLE 40 MG INJ IV SCH (04:29)
[2016-06-15] MEDS: IBUPROFEN 400 MG TAB PO PRN ×2 (04:29→11:57)
[2016-06-15] MEDS: D5W-0.45 NACL + KCL 20 MEQ 1,000 ML IV SCH (06:54)
[2016-06-15 08:03] VITALS: BP 115/75; RESP 18
[2016-06-15] MEDS: KETOROLAC 15 MG INJ IV PRN (08:33)
--- NOTE | 2016-06-15 12:13 | RADRPT ---
PROCEDURE: XR Thoracic Spine. CLINICAL INDICATION: Thoracic spine pain. TECHNIQUE: AP and lateral views of the thoracic spine were obtained. Images reviewed on a PACS wor kstation. COMPARISON: No prior studies are available for comparison. FINDINGS: There is a moderate left convex scoliosis centered at T9-10 with mild right convex scoliosis centere d at T5. There is a 10% anterior compression deformity of the T7 vertebral body, age indeterminate. The remaining vertebral body heights are maintained. There is diffuse moderate osteopenia. The n eural foramina appear patent. No definite paraspinal soft tissue swelling is seen. There are posto perative changes from prior left-sided thyroidectomy. No evidence of acute cardiopulmonary disease. IMPRESSION: 1. 10% anterior compression deformity of the T7 vertebral body, age indeterminate. CT is recommend ed to evaluate for possible acute fracture. 2. S-shaped scoliosis as discussed above. 3. Diffuse moderate osteopenia. RPTAT: HGAS .Chad Pleitez MD, MD Date Time Electronically viewed and signed by .Chad Pleitez MD, on 06/15/2016 12:12 .S/
--- NOTE | 2016-06-15 12:25 | PN ---
Date/Time of Note Date/Time of Note DATE: 06/15/16 TIME: 12:17 Assessment/Plan VTE Prophylaxis VTE Prophylaxis Intervention: SCD's Lines/Catheters IV Catheter Type (from Nrs): Peripheral IV Assessment/Plan Chief Complaint/Hosp Course - Intractable abdominal pain. - Rule out pancreatic malignancy, Dr. Parry is following in hematology oncology consultation. 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 Bermudez on 06/14, follow-up on pathology report. Continue sequential compression device for deep venous thrombosis prophylaxis and Protonix for peptic ulcer disease prophylaxis. Further recommendations based on clinical course. Plan of care discussed with Dr. Masters. Problems: Subjective 24 Hr Interval Summary Free Text/Dictation Patient's continues to have right upper quadrant pain, currently better controlled with Toradol, patient tolerates full liquid diet with no nausea vomiting. Exam/Review of Systems Vital Signs Vitals Vital Signs Date Time Temp Pulse Resp B/P Pulse Ox O2 Delivery O2 Flow Rate FiO2 06/15/16 08:03 97.8 84 18 115/75 94 06/14/16 15:00 Nasal Cannula 06/14/16 13:44 8.0 Intake and Output 06/14/16 06/14/16 06/15/16 15:00 23:00 07:00 Intake Total 600 ml 500 ml Output Total 400 ml Balance 600 ml 100 ml Exam PHYSICAL ASSESSMENT GENERAL: Well-developed, well-nourished female, currently is awake, alert. HEENT: Head is atraumatic, normocephalic. NECK: Supple, no cervical lymphadenopathy, no thyromegaly. CHEST: Lungs clear bilaterally. There is no rhonchi, wheezes, rales noted. CARDIOVASCULAR: Normal S1, S2. No murmurs, gallops, clicks, rubs noted. ABDOMEN: Round, soft, nondistended. Patient has a right upper quadrant tenderness. Bowel sounds present. EXTREMITIES: No edema, clubbing, cyanosis. Pulses equal bilaterally 2+. SKIN: There is no rash, petechiae noted. NEUROLOGIC: Patient is awake, alert and oriented x4. Results Result Diagram: 06/14/16 0552 06/14/16 0552 Medications Medications Current Medications Potassium Chloride/Dextrose/ Sod Cl (D5-1/2ns + KCl 20 Meq) 1,000 ml @ 70 mls/ hr [id number] IV Last administered on 06/14/16 05:52; Admin Dose 70 MLS/HR; Start 06/13/16 at 12:00 Pantoprazole (Protonix Iv) 40 mg DAILY@06 IV Last administered on 06/15/16 04: 29; Admin Dose 40 MG; Start 06/14/16 at 06:00 Ketorolac Tromethamine (Toradol) 15 mg Q6H PRN IV PAIN Last administered on 06/15 08:33; Admin Dose 15 MG; Start 06/14/16 at 20:00; Stop 06/17/16 at 19:59 Ibuprofen (Motrin) 400 mg Q6H PRN PO PAIN OR TEMP ABOVE 38C Last administered on 06/15/16 11:57; Admin Dose 400 MG; Start 06/14/16 at 20:00 JENNIFER ARREDONDO Jun 15, 2016 12:25
--- NOTE | 2016-06-15 14:08 | PN ---
DATE: Mrs. May complains of abdominal discomfort. The patient had an ERCP done and there was a dilated pancreatic duct, dilated bile duct and stents w ere placed into both placed into the pancreatic duct and the bile duct. I spoke with the pathologis t, Dr. Marshall. In the ampullary biopsy, there was one tiny piece which is questionable so is waiting for deeper sections for more evaluation. polyp next to the ampulla showed evidence of benign find ings. The brushings from the pancreatic duct did not show any malignant cells. It is quite possible we may be dealing with a papillary stenosis causing dilated pancreatic duct and dilated common bile duct and we are waiting for the deeper sections of the ampulla of Vater. PLAN: Continue symptomatic treatment. Dictated By: ANGY DUBON/RADHA Conf#: [id number] DID#: [id number]
--- NOTE | 2016-06-15 14:44 | CONS ---
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 Bermudez on 06/14, follow-up on pathology report. HX pancreatitis 20 years ago. HX cholecystectomy, HX hysterectomy, tubal ligation. Problems: Consultation Date/Type/Reason Admit Date/Time Jun 13, 2016 at 10:17 Initial Consult Date 06/13/16 Type of Consultation: [facility] Referring Provider: MARRY JOHNSON MD 24 HR Interval Summary Free Text/Dictation POST Endoscopic retrograde cholangiopancreatography, sphincterotomy, stent placement into the pancreatic duct, and stent placement into the bile duct. POSTOPERATIVE DIAGNOSES: Stricture noted about 1 cm above the ampulla, in the pancreatic duct there is a high grade stricture. After the brushing, a 7 x 7 pancreatic duct stent was placed. The CBD showed dilatation all the way from the ampulla to the hilum of the hepatic duct, and there was a possibility of a stricture near the ampulla. Sphincterotomy was performed. CBD stent was placed. Biopsy of the ampulla and adjacent polyp was done. PATH- P Exam/Review of Systems Vital Signs Vitals Vital Signs Date Time Temp Pulse Resp B/P Pulse Ox O2 Delivery O2 Flow Rate FiO2 06/15/16 08:03 97.8 84 18 115/75 94 06/14/16 15:00 Nasal Cannula 06/14/16 13:44 8.0 Intake and Output 06/14/16 06/14/16 06/15/16 15:00 23:00 07:00 Intake Total 600 ml 500 ml Output Total 400 ml Balance 600 ml 100 ml Exam GENERAL: Well-developed, well-nourished female, currently is awake, alert. HEENT: Head is atraumatic, normocephalic. Pupils equal, round, reactive to light and accommodation. Oral mucosa is pink and moist. NECK: Supple, no cervical lymphadenopathy, no thyromegaly. CHEST: Lungs clear bilaterally. There is no rhonchi, wheezes, rales noted. CARDIOVASCULAR: Normal S1, S2. No murmurs, gallops, clicks, rubs noted. ABDOMEN: Round, soft, nondistended. Patient has a right upper quadrant tenderness. Bowel sounds present. There is no guarding, no rebound tenderness. EXTREMITIES: No edema, clubbing, cyanosis. Pulses equal bilaterally 2+. SKIN: There is no rash, petechiae noted. NEUROLOGIC: Patient is awake, alert and oriented x4. No focal deficits noted. Motor strength 5/5 in all extremities. Results Result Diagram: 06/14/16 0552 06/14/16 0552 Medications Medications Current Medications Potassium Chloride/Dextrose/ Sod Cl (D5-1/2ns + KCl 20 Meq) 1,000 ml @ 70 mls/ hr [id number] IV Last administered on 06/14/16 05:52; Admin Dose 70 MLS/HR; Start 06/13/16 at 12:00 Pantoprazole (Protonix Iv) 40 mg DAILY@06 IV Last administered on 06/15/16 04: 29; Admin Dose 40 MG; Start 06/14/16 at 06:00 Ketorolac Tromethamine (Toradol) 15 mg Q6H PRN IV PAIN Last administered on 06/15 08:33; Admin Dose 15 MG; Start 06/14/16 at 20:00; Stop 06/17/16 at 19:59 Ibuprofen (Motrin) 400 mg Q6H PRN PO PAIN OR TEMP ABOVE 38C Last administered on 06/15/16 11:57; Admin Dose 400 MG; Start 06/14/16 at 20:00 ELLA DARLING MD Jun 15, 2016 14:44
[2016-06-15 15:15] LABS: ALBUMIN 3.8 g/dl (3.3-4.9)
[2016-06-15 15:16] LABS: POTASSIUM 3.5 mmol/L (3.5-5.1)
[2016-06-15 15:18] LABS: ALBUMIN/GLOBULIN RATIO 1.35; BILIRUBIN,INDIRECT 0.5 mg/dl (0-1.1); BILIRUBIN,TOTAL 0.5 mg/dl (0.2-1.3); CREATININE 0.67 mg/dl (0.44-1.00); TOTAL PROTEIN 6.6 g/dl (6.1-8.1)
--- NOTE | 2016-06-15 17:46 | PDOCDIS ---
Discharge Instructions CONDITION Patient Condition: Fair HOME CARE INSTRUCTIONS: Diet Instructions: full liquid advance to soft as toleratedSpecial Diet: full liquid ACTIVITY: Activity Restrictions: Slowly Increase Activity FOLLOW UP/APPOINTMENTS Appointments Patient needs to follow up with Khanh Bermudez & Deepthi within a week for further evaluation & management. F/U with PMD Dr Zach Pratt in 1-2 weeks MARRY JOHNSON MD Jun 15, 2016 17:46
--- NOTE | 2016-06-17 06:02 | DS ---
DATE OF ADMISSION: 06/13/2016 DATE OF DISCHARGE: 06/15/2016 FINAL DIAGNOSES: 1. Intractable abdominal pain. Rule out pancreatic malignancy. 2. 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 Bermudez on 06/14/2016. BRIEF HISTORY: The patient is a very pleasant 85-year-old female. The patient developed right uppe r quadrant abdominal pain a month ago and was evaluated by Dr. Parry in hematology/oncology cons ultation. The patient's outpatient MRI revealed some mass in the pancreatic ampulla, and the patien t was referred to the emergency room for further evaluation and management. The patient's CA19-9 an tigen was also elevated to 52. The patient was given Dilaudid for pain and was admitted for further evaluation and management. HOSPITAL COURSE: The patient was evaluated by Dr. Bermudez in gastroenterology consultation. The pat ient was kept n.p.o. and underwent ERCP by Dr. Bermudez. The pancreatic duct was dilated, and stents were placed into pancreatic and bile duct. The ampullary biopsy is still pending; however, there we re no malignant cells found in the brushing, and polyp next to the ampulla showed evidence of benign findings. Post-procedure, the patient was started on clear liquid diet and advanced gradually to s oft diet. The patient's condition improved, and the patient was discharged home. CONDITION ON DISCHARGE: Hemodynamically stable. ACTIVITY: As patient tolerates. Gradually increase activity. DIET: mechanical soft diet. DISCHARGE INSTRUCTIONS: The patient was instructed to follow up with Dr. Bermudez in 1 to 2 weeks and to follow up with Dr. Parry in 1 to 2 weeks. The patient is to follow up with her primary care physician, Dr. Pratt, in 1 to 2 weeks. MEDICATIONS ON DISCHARGE: The patient is to continue on Colace and [place] p.r.n. for pain. Interdisciplinary plan of care was established for this patient. Plan of care was discussed with Dr Steven Johnson. Dictated By: JENNIFER ARREDONDO [employer] SUPERVISOR for MARRY JOHNSON MD SR/NTS Conf#: [id number] DID#: [id number]
== END 2016-06-15 18:19 | disposition home or self-care (01) ==
LOC: E/R 07:18 → PP2 10:17
PROVIDERS: ADMIT Internal Medicine; ATTEND Internal Medicine
DX: D13.5 Benign neoplasm of extrahepatic bile ducts (principal); K83.1 Obstruction of bile duct; R10.11 Right upper quadrant pain; M19.90 Unspecified osteoarthritis, unspecified site; Z90.710 Acquired absence of both cervix and uterus; Z90.49 Acquired absence of other specified parts of digestive tract; Z83.3 Family history of diabetes mellitus
CPT/HCPCS: 36415; 43261; 43274; 72072; 72110; 74176; 74330; 80048; 80053; 81001; 81003; 83690; 84484; 85025; 85049; 85610; 85670; 85730; 86301; 88104; 88305; 93005; 96374; 99285; C2617; C9113; G0378; J1885; J2250; J3010; J3480; Q9967; J0360; J2370; J2405; J2710

== ENCOUNTER 2016-10-13 13:59 | Day surgery (SDC) | payer OTHER ==
[~2016-10-13] VITALS: Ht 152.4 cm; Wt 60.3 kg
[~2016-10-13 13:59] MED LIST changes: +DOCU-144 PO; +HYDR-906 PO; -SYNTHROID PO; -[UNRECOGNIZED DRUG - OTHER]
[2016-10-13 14:36] VITALS: Ht 152.4 cm; Wt 60.3 kg
[2016-10-13 15:14] VITALS: BP 117/66; PULSE 82; RESP 18
[2016-10-13] MEDS ORDERED: PROPOFOL 20 ML ONE (15:21)
[2016-10-13] MEDS ORDERED: EPHEDrine SULFATE 50 MG/5 ML SYG ONE (15:21)
[2016-10-13] MEDS ORDERED: FENTAnyl 50 MCG/ML VIAL ONE (15:21)
[2016-10-13 16:19] VITALS: BP 120/67; PULSE 81; RESP 14
--- NOTE | 2016-10-13 16:39 | OPR ---
Date/Time of Note Date/Time of Note DATE: 10/13/16 TIME: 16:32 Operative Report Free Text/Dictation Dr. Tran dictating the operative procedure colonoscopy Procedure Date: Oct 13, 2016 Preoperative Diagnosis Patient presenting with a history of chronic abdominal pain constipation past history of colon polyps rule out colorectal neoplasm Postoperative Diagnosis Colonoscopy revealed evidence of a severe diverticulosis tortuosity of the colon minimal external hemorrhoids Details of the procedure After informed written consent is obtained patient was asked to layon left lateral side intravenous anesthesia was given by anesthesiologist Dr. li When the patient becomes somnolent Olympus video colonoscope was introduced into the rectum and advanced all the way to the cecum severe diverticulosis tortuosity of the colon was noted No evidence of neoplasm noted. On the way out minimal external hemorrhoids were noted The procedure was terminated plan recommend high-fiber diet Operation Performed Dr. Bermudez Indications ANGY Juarez MD Oct 13, 2016 16:39
--- NOTE | 2016-10-13 17:01 | GILP ---
DATE OF PROCEDURE: 10/13/2016 PROCEDURE: Colonoscopy up to cecum. PREOP DIAGNOSIS: The patient presenting with history of colon polyps, abdominal pain and chronic constipation, rule out colon polyps. POSTOP DIAGNOSES: 1. Severe diverticulosis with a redundant colon and a tortuous colon. 2. Minimal external hemorrhoids. PROCEDURE PERFORMED: After informed written consent is obtained. The patient was asked to lay in the left lateral side. The patient was given intravenous anesthesia by a anesthesiologist, Dr. Sin. When the patient became somnolent, Olympus video colonoscope was introduced into the rectum. The scope was advanced all the way to the cecum. Severe diverticulosis noted all over the colon, but no evidence of polyps, no evidence of tumor noted. Scope at this time was withdrawn. On the way out careful evaluation was carried out and no polyps noted. Minimal internal hemorrhoids. Minimal external hemorrhoids were noted. The procedure was terminated. PLAN: Recommend high-fiber diet. Dictated By: Gelacio Bermudez MD /kasandra/kimberly /Document#: [id number] CC: Micah Pratt MD;*EndCC*
== END 2016-10-13 17:54 | disposition home or self-care (01) ==
LOC: GIL 13:59
PROVIDERS: ATTEND Internal Medicine Gastroenterology
DX: K57.30 Diverticulosis of large intestine without perforation or abscess without bleeding (principal); K64.4 Residual hemorrhoidal skin tags; R10.9 Unspecified abdominal pain; K59.00 Constipation, unspecified; Z86.010 Personal history of colon polyps
CPT/HCPCS: 45378; J3010

== ENCOUNTER 2016-11-16 14:35 | Emergency (ER) | payer OTHER ==
[~2016-11-16] VITALS: Ht 152.4 cm; Wt 61.5 kg
[2016-11-16 14:54] VITALS: Ht 152.4 cm; Wt 61.5 kg
--- NOTE | 2016-11-16 16:05 | ERD ---
ER Documentation Chief Complaint Date/Time DATE: 11/16/16 TIME: 16:01 Chief Complaint blood in urine, painful urination for months worse today HPI Patient is an 86-year-old female who presents with gradual onset, constant, progressive vaginal burning and dysuria for the last 4 years. She states that she has seen a tumbler machine operator helper and urologist, has had cystoscopy and bladder biopsy , and still does not have an explanation for her symptoms. She denies any acute change to her symptoms, but states that she was frustrated waiting for a urologist appointment and a PMD appointment, which will not be until next month. She had a urinalysis and urine culture done on November 04. The UA showed a few WBCs but the culture was negative. She denies any fever, flank pain. She denies vaginal discharge. ROS All systems reviewed and are negative except as per history of present illness. Medications Home Meds Reported Medications [None] No Conflict Check 10/13/16 Allergies Allergies: Coded Allergies: No Known Allergy (Unverified , 06/13/16) PMhx/Soc Past medical history: Chronic dysuria due to unknown cause. Past surgical history: Resection of thyroid mass Social history: Denies tobacco or alcohol History of Surgery: Yes (HYSTERECTOMY, THROID, OOPHERECTOMY, APPENDECTOMY) Anesthesia Reaction: No Hx Neurological Disorder: No Hx Respiratory Disorders: Yes (BRONCIECTASIS) Hx Cardiac Disorders: No Hx Psychiatric Problems: No Hx Miscellaneous Medical Probl: No Hx Alcohol Use: No Hx Substance Use: No Hx Tobacco Use: No Smoking Status: Never smoker FmHx Family History: No coronary disease, No diabetes Physical Exam Vitals Vital Signs Date Time Temp Pulse Resp B/P Pulse Ox O2 Delivery O2 Flow Rate FiO2 11/16/16 14:54 98.7 85 18 125/78 96 Physical Exam Const: Alert, no acute distress Head: Atraumatic Eyes: Normal Conjunctiva ENT: Normal External Ears, Nose and Mouth. Mucous membranes moist Neck: Full range of motion..~ No meningismus. Resp: Clear to auscultation bilaterally Cardio: Regular rate and rhythm, no murmurs Abd: Soft, non tender, non distended. Skin: No petechiae or rashes Back: No midline or flank tenderness Ext: No cyanosis, or edema Neur: Awake and alert, Cranial nerves II through XII intact bilaterally, straight sensation full in 4 extremities per Psych: Normal Mood and Affect Procedures/MDM MDM: Patient is a 86-year-old female who has 4 years of chronic urinary symptoms and presents to the ER due to gradual progression of symptoms during this time. She states that she is trying to get a new appointment with her urologist but is having issues with her insurance. She states that she has an appointment with her PMD next month, but is frustrated with waiting. She thought that by coming to the ER she would be able to see the urologist more expeditiously. She denies any acute change of symptoms. She had a urinalysis a week and a half ago that showed a few WBCs, but the culture was negative. She denies any change in her symptoms during this time. I will send a repeat urine culture, but no other testing is indicated at this time.. I advised her that she will not be able to have urgent urologic consultation from the ER for a chronic condition. I offered to call her PMD to arrange for close outpatient follow-up, but the patient declined. I advised her on return precautions for acutely worsening symptoms, fever, vomiting, or other concerns. Departure Diagnosis: Primary Impression: Dysuria Condition: Stable Patient Instructions: Dysuria Additional Instructions: Call your PMD tomorrow to arrange for further follow-up appointment. Return to the ER for fever, vomiting or worsening symptoms. PEDRO HUGHES MD Nov 16, 2016 16:05
== END 2016-11-16 16:18 | disposition home or self-care (01) ==
LOC: E/R 14:35
DX: R30.0 Dysuria (principal)
CPT/HCPCS: 87086; 99282

== ENCOUNTER 2017-04-06 11:15 | Day surgery (SDC) | END 2017-04-06 17:20 | disposition home or self-care (01) ==

== ENCOUNTER 2018-02-28 08:52 | Day surgery (SDC) | END 2018-02-28 12:35 | disposition home or self-care (01) ==